=== PATIENT | male | born 1985 | race Hispanic/Latino ===

== ENCOUNTER 2018-06-05 18:46 | Emergency (ER) | payer SELFPAY ==
[~2018-06-05] VITALS: Ht 154.9 cm; Wt 67.0 kg
[2018-06-05 19:50] VITALS: BP 155/89
[2018-06-05] MEDS ORDERED: KEFLEX500 MG PO (19:52)
== END 2018-06-05 20:03 | disposition home or self-care (01) | DRG 605 ==
LOC: ED 18:46
PROC: 0HQLXZZ Repair Left Lower Leg Skin, External Approach (ICD-10-PCS; principal; 2018-06-05)
DX: S81.012A Laceration without foreign body, left knee, initial encounter (principal); W27.1XXA Contact with garden tool, initial encounter; Y93.H2 Activity, gardening and landscaping; Y92.89 Other specified places as the place of occurrence of the external cause; Y99.0 Civilian activity done for income or pay